=== PATIENT | female | born 1985 | race Caucasian/White ===

== ENCOUNTER 2017-07-09 05:08 | Day surgery (SDC) | payer OTHER ==
[2017-07-08 10:09] LABS: HEMOGLOBIN 14.4 g/dL (12-16); MCH 29.6 pg (26.0-34.0); MCHC 33.5 g/dL (31.0-37.0); MCV 88.3 fL (80.0-100.0); MEAN PLATELET VOLUME 8.8 fL (7.4-10.4); RBC 4.87 10x6/uL (4.00-5.40); WBC 14.5 10x3/uL (4.8-10.8)
[~2017-07-09] VITALS: Ht 157.5 cm; Wt 94.3 kg
[~2017-07-09 05:08] MED LIST: ACETAMINOPHEN325 MG PO; ULTRAM50 MG PO
[2017-07-09 07:34] LABS: HCG URINE NEGATIVE (NEGATIVE)
[2017-07-09 07:36] VITALS: BP 114/65; Ht 157.5 cm; Wt 94.3 kg
[2017-07-09] MEDS ORDERED: PERCOCET 7.5/321 TAB PO (14:10)
[2017-07-09] MEDS ORDERED: DURICEF500 MG PO (14:11)
[2017-07-09] MEDS ORDERED: TORADOL10 MG PO (14:11)
--- NOTE | 2017-07-11 09:36 | OP ---
PATIENT NAME: JOSE CRUZ COELLO MEDICAL RECORD: [id number] :86 LOCATION:[facility] ADMISSION DATE: SURGEON: REE COATS DO DATE OF OPERATION: 07/09/2017 PROCEDURE PERFORMED: Left ACL reconstruction. PREOPERATIVE DIAGNOSIS: Left anterior cruciate ligament tear. POSTOPERATIVE DIAGNOSIS: Left anterior cruciate ligament tear. INDICATIONS: Ms. Coello is a 31-year-old female, who presented to my office in early May, who had a knee injury approximately 9 months prior and had had instability problems since. She had tried rehabilitation through physical therapy without avail and no improvement and so she got an MRI in early May, which showed what appeared to be a partial tear of the ACL. On examination, she continues to have instability and have positive Fareed test, 2-3+ Fareed, and she did therapy as an outpatient basis, as well as wore an ACL brace for about a month or longer and did not tolerate that, said she had started feeling instability and wanted her ACL fixed. Therefore, she was consented for a left ACL reconstruction, telling her that if we took a look at it and was not completely torn and it was stable, we would not do reconstruction. She was consented for that in the office. DESCRIPTION OF PROCEDURE: Ms. Coello was taken to the operative suite after block from anesthesia, placed in supine position and given general anesthetic. She was then positioned on the bed. A timeout was performed and everyone was in agreement with the right procedure and patient, it is planned to do an allograft reconstruction. The scope was then begun. Once prepped and draped, a timeout was performed. She did receive clindamycin for antibiotic. The patient portals were marked out and injected with 0.5% Marcaine with epinephrine and there are about 3 mL per portal site in the high anterior lateral, low anterior medial and the accessory medial portal. Those were all marked and injected. Knee arthroscopy then began by creating the high anterolateral portal with an 11-blade scalpel. A trocar was then introduced into the knee and the camera was placed in. The suprapatellar pouch was inspected. There was no cartilage damage noted on the patella or the trochlea. The lateral gutter was then inspected, did not reveal any loose bodies, as well as the medial gutter, which appeared to be normal. The knee was then flexed and the medial compartment was inspected. I did not see meniscal tear and the medial portal was established. The medial meniscus was probed and did not see a tear. Attention was then drawn to the ACL itself after some fat pad was removed with a shaver and it appeared to be loose and back at the insertion, it was inspected and seen to be hanging onto the femur at the proximal insertion by few fibers, which were easily ripped away with the probe itself. We then decided that we would do an ACL reconstruction due to the fact that it was not secured on the femur and as per previous conversation with the patient, the lateral meniscus was then inspected as well as the lateral compartment of the knee and did not reveal any tears, it was intact, as well as the cartilage on the medial femoral condyle as well as the tibial plateau. The [place] ACL was then removed using a shaver leaving the stump of the original site on the femur and the tibia to martina where to place a graft. A femur was cleared and the guide was used after the accessory medial portal was established and the tunnel was made. The FiberWire was then passed up through the tunnel and with a Beath needle and secured. The tibial tunnel was then addressed and was made at the prior ACL footprint and the incision was OPERATIVE REPORT [id number] JOSE CRUZ COELLO made on the skin of the tibia in order to feed the reamer at the tibia. This was done and the ACL graft was passed through the tibial tunnel, as well as the femoral tunnel and toggled into position as the button flipped on the femur side and was taken through a range of motion and tightened. The biologic screw was then placed on the tibial tunnel right underneath the graft and seemed to be in good position, was checked to see if it was not into the joint or sticking on the tibia and then the femur side was toggled again to tighten the ACL graft. The graft was viewed in the knee itself through the scope portal and seemed to be in great position and very stable without any laxity. The scope was then removed and an anterior drawer and Fareed tests on the patient, which confirmed a very solid endpoint of the ACL graft. The portals were then closed. The scope portals were closed with inverted interrupted stitch of 4-0 Monocryl where the tibial reamer was placed with 2-0 Vicryl, and then inverted interrupted 4-0 Monocryl were used to close that site. Dermabond was then placed over all the wounds including where the Beath pin came out of the femur on the lateral side after a 4-0 Monocryl stitch was placed there in an inverted interrupted pattern. The tourniquet was put down at 1 hour. Blood loss was minimal and the patient was awakened and taken to recovery in stable condition, placed in knee immobilizer. TRANSINT:[id number] Voice Confirmation ID: [id number] DOCUMENT ID: [id number] REE COATS DO at 0936 CC: [id number] DICTATION DATE: 07/09/17 1408 FOLDER STITCHER OPERATOR: 07/09/[address] [facility] 07/09/17 [address] [place] [address]
== END 2017-07-09 16:54 | disposition home or self-care (01) ==
LOC: D.OPS 05:08 → D.PAN 08:15 → EDBD 08:15 → D.OPS 08:15
PROVIDERS: Anesthesiology; Orthopaedic Surgery
DX: S83.512A Sprain of anterior cruciate ligament of left knee, initial encounter (principal); Z01.812 Encounter for preprocedural laboratory examination

== ENCOUNTER 2017-07-12 13:38 | Emergency (ER) | payer OTHER ==
[2017-07-09 07:36] VITALS: BMI 38.1
[~2017-07-12 13:38] MED LIST changes: +DURICEF500 MG PO; +PERCOCET 7.5/321 TAB PO; +TORADOL10 MG PO
== END 2017-07-12 18:10 | disposition left against medical advice (07) ==
LOC: D.ER 13:38
DX: R06.02 Shortness of breath (principal)

== ENCOUNTER → 2019-12-04 15:11 | Outpatient (CLI) | payer MEDICAID ==
[2017-07-09 07:36] VITALS: BMI 38.1
== END | disposition home or self-care (01) ==
LOC: D.MRI 15:11
PROVIDERS: ATTEND Orthopaedic Surgery
DX: G57.62 Lesion of plantar nerve, left lower limb (principal)

== ENCOUNTER 2020-04-12 06:53 | Day surgery (SDC) | payer MEDICAID ==
[2020-04-11 12:45] LABS: HEMATOCRIT 41.5 % (36.0-48.0); HEMOGLOBIN 13.6 g/dL (12-16); MCH 28.8 pg (26.0-34.0); MCHC 32.8 g/dL (31.0-37.0); MCV 87.7 fL (80.0-100.0); MEAN PLATELET VOLUME 8.4 fL (7.4-10.4); RBC 4.73 10x6/uL (4.00-5.40); RDW 13.8 % (11.5-14.5); WBC 12.4 10x3/uL (4.8-10.8)
[~2020-04-12] VITALS: Ht 157.5 cm; Wt 113.4 kg
[~2020-04-12 06:53] MED LIST changes: +ALEVE220 MG PO; +BENADRYL50 MG PO; +BUSPAR10 MG PO; +CLARITIN 10 MG10 MG PO; +MUCINEX600 MG PO; +REXULTI1 MG PO; +[UNRECOGNIZED DRUG - OTHER] PO
[2020-04-12 07:42] VITALS: BP 115/78; Ht 157.5 cm; Wt 113.4 kg
[2020-04-12 07:54] LABS: HCG URINE NEGATIVE (NEGATIVE)
[2020-04-12] MEDS ORDERED: PERCOCET 5-3251 TAB PO (09:58)
--- NOTE | 2020-04-12 15:02 | NUR ---
1120 PT IS ASKING FOR PAIN MEDICATION FOR PAIN LEVEL OF 5 OUT OF 10. 1158 IV DC'D. CATHETER TIP INTACT. NO BLEEDING AT SITE. BANDAID APPLIED. PT STATES SHE HAS CRUTCHES AT HOME AND KNOWS HOW TO USE THEM WELL HOW TO WEIGHT BEAR TOLERATED. PT WAS TRANSFERRED TO AT 1125 VIA WC TO VOID WITHOUT DIFFICULTY AND BACK TO BED WITHOUT INCIDENT. PT VOICES UNDERSTANDING OF DISCHARGE INSTRUCTIONS.
--- NOTE | 2020-04-12 15:13 | NUR ---
1200 PT STATES PAIN LEVEL IS NOW A 3 OUT OF 10. SHE FEELS BETTER AND IS READY TO BE DISCHARGED HOME
--- NOTE | 2020-04-12 15:14 | NUR ---
1200 PT HAS NO ITCHING OR RASH AFTER TAKING PAIN MEDICATION
--- NOTE | 2020-04-16 07:09 | OP ---
PATIENT NAME: JOSE CRUZ COELLO MEDICAL RECORD: [id number] :86 [facility] AD[facility] DATE: SURGEON: DASH COATS DO DATE OF OPERATION: 04/12/2020 PROCEDURE PERFORMED: Left knee arthroscopy with partial medial and partial lateral meniscectomy. PREOPERATIVE DIAGNOSIS: Left knee medial and lateral meniscal tears. POSTOPERATIVE DIAGNOSIS: Left knee medial and lateral meniscal tears. INDICATIONS: Ms. Coello is a 34-year-old female well known to me. She had an ACL reconstruction done about 2 years ago. She was doing decently until recently. She has had left knee pain, increasing mostly on the medial side. Her ACL graft had somewhat felt like it stretched out with exam, but she did not want that redone. There did have an endpoint, but it was loose compared to the other side. She is complaining of pain, had an MRI, which showed thinning of the meniscus, medial and lateral, possibly indicating tears. I informed her that we could try an injection, we did, and that did not work, and tried everything including physical therapy to no avail. She was to a point where she wants something done surgically. I informed her we could scope and trim out those meniscal tears and take a look, and she was okay with that and was aware of the risks including infection, bleeding, damage to nerves or vessels in the area continued pain, need for further surgery, and signed a consent. SURGEON: Dash Coats DO DESCRIPTION OF PROCEDURE: The patient was taken to the operative suite, laid in supine position, given general anesthetic and LMA was placed. She was given 2 grams of Ancef preoperatively. Left lower extremity was then prepped and draped in sterile fashion. A timeout was performed and everyone was in agreement with correct side, site, patient and procedure. I then began by making a lateral portal with an 11-blade scalpel and a trocar entered into the joint. I then put a camera in, inspected the suprapatellar pouch and loose body was seen in the medial or lateral gutters. The knee was then flexed and medial compartment was entered. The 18-gauge spinal needle was then used with an 11-blade scalpel to establish a medial portal. A trocar was brought in. I then inspected the medial meniscus and there was a small tear in the middle section of the innermost white-white area of the meniscus. This was trimmed out with an upbiter and then later with a shaver to smooth it out. I then inspected the ACL, it was intact; however, was a little loose. I debrided some of it and then went to the lateral side and [id number]'ed the leg. She had some fraying of the meniscus on the innermost portion of the lateral meniscus and the shaver was brought in and trimmed that out as well. I then went to the suprapatellar pouch again and inspected the patella. There was no chondromalacia seen over the medial or lateral compartments. There was a small, on the nonweightbearing portion, of the most medial aspect of the medial femoral condyle, a small fissure in the cartilage which was trimmed. We then turned the water off and suction on and removed the scope. The sites were then closed with 4-0 Monocryl in inverted interrupted fashion by Cory Egan, certified surgical design assistant, then Steri-Strips, Adaptic, 4 x 4's, ABD, Webril, Monty wrap and BRIDGER hose stockings were then placed on the patient. She was awakened and taken to recovery in stable condition. OPERATIVE REPORT [id number] JOSE CRUZ COELLO BLOOD LOSS: Minimal. COMPLICATIONS: None. TRANSINT:[id number] Voice Confirmation ID: [id number] DOCUMENT ID: [id number] DASH COATS DO at 0709 CC: [id number] DICTATION DATE: 04/12/20 1003 GEOPHYSICAL SUPPORT SPECIALIST: 04/12/20 1621 [facility] 04/12/20 [facility] [address] [place] [address]
== END 2020-04-12 12:04 | disposition home or self-care (01) ==
LOC: D.OPS 06:53 → D.PAN 09:45 → D.OPS 09:45
PROVIDERS: Anesthesiology; ATTEND Orthopaedic Surgery
DX: S83.282A Other tear of lateral meniscus, current injury, left knee, initial encounter (principal); S83.242A Other tear of medial meniscus, current injury, left knee, initial encounter; X58.XXXA Exposure to other specified factors, initial encounter

== ENCOUNTER → 2020-04-30 12:11 | Outpatient (CLI) | payer MEDICAID ==
[2020-04-12 07:42] VITALS: BMI 45.8
[~2020-04-30 12:11] MED LIST changes: +PERCOCET 5-3251 TAB PO
== END | disposition home or self-care (01) ==
LOC: D.LABREF 12:11
PROVIDERS: ATTEND Podiatrist
DX: Z11.59 Encounter for screening for other viral diseases (principal)

== ENCOUNTER 2020-05-03 09:09 | Day surgery (SDC) | payer MEDICAID ==
[~2020-05-03] VITALS: Ht 157.5 cm; Wt 113.4 kg
--- NOTE | ~2020-05-03 | OP ---
PATIENT NAME: JOSE CRUZ MONTIEL MEDICAL RECORD: [id number] :86 LOCATION:[facility] ADMISSION DATE: SURGEON: MOISES AMARO DATE OF OPERATION: 05/03/2020 SURGEON: Moises Amaro DPM PREOPERATIVE DIAGNOSIS: Neuroma, second intermetatarsal space, left foot. POSTOPERATIVE DIAGNOSIS: Neuroma, second intermetatarsal space, left foot. PROCEDURE: Excision of neuroma, left foot. ANESTHESIA: Local with monitored anesthesia care. HEMOSTASIS: Pneumatic ankle tourniquet inflated to 250 mmHg. ESTIMATED BLOOD LOSS: Minimal. MATERIALS: 3-0 Vicryl, 4-0 nylon. INJECTABLES: 20 cc of 0.5% bupivacaine plain. The patient has longstanding history of pain associated with a neuroma in the second intermetatarsal space of the left foot. She has not responded to conservative care. She is here today for surgical excision of this painful lesion. Again, we reviewed the risks and benefits of the procedure, complications were discussed. All questions were answered. She was appropriately consented for the above-mentioned procedure. The patient was brought in the operating room and placed on the operating table in supine position. A timeout was called with Dr. Amaro, who identified the patient, the surgical site, and the surgery to be performed. Once appropriate anesthesia was obtained, the foot was prepped and draped in the usual aseptic manner. Attention was directed to the dorsal aspect of the left foot where a 3-cm linear incision was made directly over the second intermetatarsal space. This incision was carried deep to soft tissue with care being taken to retract all vital neurovascular structures. All bleeders were cauterized along the way. The deep transverse intermetatarsal ligament was then identified at the base of this incision. This ligament was then sharply transected. The neuroma was then identified and dissection was carried further into the lateral aspect of the second toe and the medial aspect of the third toe following the digital branches. The dissection was carried as far distally as possible and each nerve branch was sharply transected. Attention was then directed more proximally to the nerve branch in between the metatarsal. This nerve branch was dissected as far into the intermetatarsal space as possible and sharply transected. The specimen was passed from the field and sent to pathology. The surgical site was then inspected for any remaining pathological tissue and none was noted. The surgical site was then irrigated with copious amounts of normal sterile saline via bulb syringe. The subQ was then reapproximated and coapted using 3-0 Vicryl. The skin was then reapproximated and coapted using 4-0 nylon. A dressing consisting of OPERATIVE REPORT [id number] FINAKSJOSE CRUZ Xeroform, 4 x 4's, Kerlix, and Monty bandage was applied to the left foot. The pneumatic ankle tourniquet was deflated and capillary refill time was immediate to all digits of the left foot. The patient tolerated the procedure and anesthesia well. She will be discharged home with instructions to ice and elevate the left foot. She was dispensed a postop shoe to further help offload the area. She has some crutches to also further assist with offloading. She has my cell phone number for any afterhours difficulties and there were no complications with this procedure. We will follow up with her in 1 week. TRANSINT:[id number] Voice Confirmation ID: [id number] DOCUMENT ID: [id number] MOISES AMARO CC: [id number] DICTATION DATE: 05/03/20 1436 [employer]: 05/04/20 0050 [facility] 05/03/20 [id number] [place] [address]
[2020-05-03 09:28] LABS: HEMATOCRIT 42.5 % (36.0-48.0); HEMOGLOBIN 13.8 g/dL (12-16); MCH 28.8 pg (26.0-34.0); MCHC 32.5 g/dL (31.0-37.0); MCV 88.5 fL (80.0-100.0); MEAN PLATELET VOLUME 8.2 fL (7.4-10.4); RBC 4.8 10x6/uL (4.00-5.40); RDW 13.7 % (11.5-14.5); WBC 12.2 10x3/uL (4.8-10.8)
[2020-05-03 09:48] VITALS: BP 124/71; Ht 157.5 cm; Wt 113.4 kg
[2020-05-03 09:56] LABS: HCG SERUM NEGATIVE (NEGATIVE)
== END 2020-05-03 14:05 | disposition home or self-care (01) ==
LOC: D.OPS 09:09
PROVIDERS: Anesthesiology; ATTEND Podiatrist
DX: G57.82 Other specified mononeuropathies of left lower limb (principal); M79.672 Pain in left foot